=== PATIENT | female | born 2000 | race Caucasian/White ===

== ENCOUNTER 2018-07-06 14:03 | Emergency (ER) | payer OTHER ==
[2018-07-06] MEDS ORDERED: KETOROLAC 30 MG/ML VIAL IVP STA (15:07)
[2018-07-06] MEDS ORDERED: diphenhydrAMINE INJ 50 MG/ML VIAL IVP STA (15:07)
[2018-07-06] MEDS ORDERED: PROCHLORPERAZINE 10 MG/2 ML VIAL IVP STA (15:07)
--- NOTE | 2018-07-06 15:12 | ED Physician Documentation ---
History of Present Illness - Stated complaint Stated Complaint: VISION LOSS/CHANGES - Chief complaint Chief Complaint: Neuro - History obtained from History obtained from: Patient, Friend - History of Present Illness Timing: How many hours ago (2) Pain level max: 8 Pain level now: 8 Improved by: nothing Worsened by: bright lights, noise - Additonal information Additional information: states L eye vision became blurry, then dark over the lateral aspect of her L eye vision. This resolved and then developed a migraine headache. Patient has a history of migraine headaches, but has never had visual changes like this before. She is currently sensitive to light and sound. No fevers. No trauma. Has not taken anything for this. Denies any possibility of . Review of Systems Constitutional: denies: Fever, Chills PD PAST MEDICAL HISTORY - Past Medical History Past Medical History: Yes Neuro: Headaches - Past Surgical History Past Surgical History: No - Allergies Allergies/Adverse Reactions: Allergies Allergy/AdvReac Type Severity Reaction Status Date / Time No Known Drug Allergies Allergy Verified 07/06/18 14:16 - Living Situation Living Arrangement: reports: At home - Social History Does the pt have substance abuse?: No - Family History Family history: reports: Non contributory - Immunizations Immunizations are current?: Yes PD ED PE NORMAL - Vitals Vital signs reviewed: Yes - General General: Alert and oriented X 3, No acute distress, Well developed/nourished - HEENT HEENT: Atraumatic, PERRL, EOMI, Ears normal, Moist mucous membranes, Other (Normal funduscopic exam bilaterally) - Neck Neck: Supple, no meningeal sign - Cardiac Cardiac: RRR, Strong equal pulses - Respiratory Respiratory: No respiratory distress, Clear bilaterally - Abdomen Abdomen: Soft, Non tender, Non distended - Back Back: No spinal TTP - Derm Derm: Warm and dry - Extremities Extremities: No edema, No calf tenderness / cord - Neuro Neuro: Alert and oriented X 3, office clinician 2-12 intact, No motor deficit, No sensory deficit, Normal speech Eye Opening: Spontaneous Motor: Obeys Commands Verbal: Oriented GCS Score: 15 - Psych Psych: Normal mood, Normal affect - Free text exam Free text exam: NIHSS 0 at 1500 Results - Vitals Vitals: Vital Signs - 24 hr 07/06/18 16:03 Temperature 36.2 C L Heart Rate 62 Respiratory 18 Rate Blood Pressure 110/55 L O2 Saturation 100 Oxygen O2 Source Room air - Rads (name of study) head CT Radiology: Prelim report reviewed, EMP read contemporaneously, See rad report (no acute abnormality) PD MEDICAL DECISION MAKING - ED course Complexity details: reviewed results, re-evaluated patient (Headache improved. Would like to go home), considered differential, d/w patient ED course: 18-year-old female presents to the emergency department with what appears to be a complex migraine. She is well-appearing, nontoxic. Afebrile. No acute findings on head CT. Headache improved with Toradol, Compazine, Benadryl. No evidence of subarachnoid hemorrhage. Will follow up with her doctor for further evaluation and care. Patient counseled regarding signs and symptoms for which I believe and urgent re-evaluation would be necessary. Patient with good understanding of and agreement to plan and is comfortable going home at this time This document was made in part using voice recognition software. While efforts are made to proofread this document, sound alike and grammatical errors may occur. Departure - Departure Disposition: 01 Home, Self Care Clinical Impression: Migraine Qualifiers: Migraine type: unspecified Status migrainosus presence: without status migrainosus Intractability: not intractable Qualified Code(s): G43.909 - Migraine, unspecified, not intractable, without status migrainosus Condition: Good Instructions: ED Headache Migraine Follow-Up: LOVE CASILLAS [Primary Care Provider] - Within 1 week Comments: Go home and rest today. Return if you worsen. Your head CT is normal today. Forms: Activity restrictions Discharge Date/Time: 07/06/18 16:35
--- NOTE | 2018-07-06 16:00 | CT Report ---
Reason: headache, vision loss Procedure Date: 07/06/2018 Accession Number: [id number] / [id number] Procedure: CT - HEAD WO CPT Code: FULL RESULT: EXAM: CT HEAD EXAM DATE: 07/06/2018 03:33 PM. CLINICAL HISTORY: Headache. COMPARISON: None. TECHNIQUE: Multiaxial CT images were obtained from the foramen magnum to the vertex. Reformats: Sagittal and coronal. IV contrast: None. In accordance with CT protocol optimization, one or more of the following dose reduction techniques were utilized for this exam: automated exposure control, adjustment of mA and/or KV based on patient size, or use of iterative reconstructive technique. FINDINGS: Parenchyma: No intraparenchymal hemorrhage. No evidence of mass, midline shift, or CT findings of infarction. Villagran-white differentiation is distinct. Extraaxial Spaces: Normal for age. No subdural or epidural collections. Ventricles: Normal in size and position. Sinuses and Orbits: Imaged paranasal sinuses, orbits, and mastoids show no significant abnormality. Bones: Unremarkable. Other: None. IMPRESSION: Normal head CT. [facility]
[2018-07-06 16:04] VITALS: BP 110/55
== END 2018-07-06 16:35 | disposition home or self-care (01) ==
LOC: ED 14:03
DX: G43.909 Migraine, unspecified, not intractable, without status migrainosus (principal)
CPT/HCPCS: 70450; 96374; 96376; 99283; J1200